=== PATIENT | male | born 1945 | race Asian ===

== ENCOUNTER 2017-09-23 12:20 | Inpatient (IN) | payer MEDICARE ==
[~2017-09-23] VITALS: Ht 172.7 cm; Wt 73.0 kg
[2017-09-23 12:20] VITALS: BP 170/108
[2017-09-23] MEDS ORDERED: SIMVASTATIN5 MG ORAL (12:34)
[2017-09-23] MEDS ORDERED: NORVASC2.5 MG ORAL (12:34)
[2017-09-23] MEDS ORDERED: Albuterol ud Inhalation HHN ONE ×2 (12:45→13:45)
[2017-09-23] MEDS ORDERED: Ipratropium 0.02% Inh Soln 2.5ml UD HHN ONE (12:45)
[2017-09-23] MEDS ORDERED: Solu-MEDROL 125mg Inj IVP ONE (12:45)
[2017-09-23 13:10] LABS: BASOPHILS % (AUTO) 1.6 % (0.0-2.0); EOSINOPHILS % (AUTO) 0.2 % (0.0-3.0); HEMATOCRIT 47.3 % (42.0-52.0); HEMOGLOBIN 15.8 G/DL (14.2-18.0); LYMPHOCYTES % (AUTO) 6.4 % (20.0-45.0); MEAN CORPUSCULAR VOLUME 94 FL (80-99); MONOCYTES % (AUTO) 16.4 % (1.0-10.0); NEUTROPHILS % (AUTO) 75.4 % (45.0-75.0); PLATELET COUNT 343 K/UL (150-450); RED BLOOD COUNT 5.03 M/UL (4.70-6.10); RED CELL DISTRIBUTION WIDTH 11.1 % (11.6-14.8); WHITE BLOOD COUNT 11.1 K/UL (4.8-10.8)
[2017-09-23 13:25] LABS: ANION GAP 11 mmol/L (5-15); BLOOD UREA NITROGEN 14 mg/dL (7-18); CALCIUM 8.1 MG/DL (8.5-10.1); CARBON DIOXIDE 26 MMOL/L (21-32); CHLORIDE 102 MMOL/L (98-107); POTASSIUM 3.4 MMOL/L (3.5-5.1); SODIUM 138 MMOL/L (136-145)
[2017-09-23 13:39] LABS: ALANINE AMINOTRANSFERASE 32 U/L (12-78); ALBUMIN 3.4 G/DL (3.4-5.0); ALBUMIN/GLOBULIN RATIO 0.8 (1.0-2.7); ALKALINE PHOSPHATASE 130 U/L (46-116); ASPARTATE AMINO TRANSFERASE 19 U/L (15-37); BILIRUBIN,TOTAL 0.6 MG/DL (0.2-1.0); CKMB 2.8 NG/ML (0.0-3.6); CREATINE KINASE 503 U/L (26-308)
[2017-09-23 14:00] VITALS: BP 153/91
--- NOTE | 2017-09-23 14:16 | Emergency Room Report ---
History of Present Illness General Chief Complaint: Asthma Source: Patient Present Illness HPI Patient present with complaints of shortness of breath Patient has history of asthma however has not required to go to the hospital previously He has increased cough shortness of breath Denies any pleurisy denies any chest pain Denies any vomiting or diarrhea Denies any recent travel Denies any calf pain or swelling He has not had much improvement at home with intervention Allergies: Coded Allergies: No Known Allergies (Unverified , 09/23/17) Patient History Past Medical History: see triage record Pertinent Family History: none Reviewed Nursing Documentation: PMH: Agreed, PSxH: Agreed Nursing Documentation-PM Past Medical History: No History, Except For Hx Hypertension: Yes Hx Asthma: Yes Review of Systems All Other Systems: negative except mentioned in HPI Physical Exam Vital Signs Date Time Temp Pulse Resp B/P (MAP) Pulse Ox O2 Delivery O2 Flow Rate FiO2 09/23/17 12:20 101 16 170/108 92 Room Air 09/23/17 12:27 98.1 09/23/17 13:12 21 Sp02 EP Interpretation: reviewed, normal General Appearance: mild distress - short of breath Head: normocephalic, atraumatic Eyes: bilateral eye PERRL, bilateral eye EOMI ENT: hearing grossly normal, normal pharynx, TMs + canals normal, uvula midline Neck: full range of motion, supple, no meningismus, no bony tend Respiratory: wheezing - Diffusely, patient is tachypneic, no obvious retractions at this time Cardiovascular #1: no edema, no gallop, no JVD, no murmur, tachycardia Gastrointestinal: normal bowel sounds, non tender, soft, no mass, no organomegaly, non-distended, no guarding, no hernia, no pulsatile mass, no rebound Genitourinary: no CVA tenderness Musculoskeletal: normal inspection Neurologic: oriented x3, responsive, director of publications III-XII nml as tested, motor strength/ tone normal, sensory intact Psychiatric: mood/affect normal Skin: normal color, no rash, warm/dry, palpation normal Lymphatic: normal inspection, no adenopathy Medical Decision Making Diagnostic Impression: Primary Impression: Asthma attack Additional Impression: URI (upper respiratory infection) ER Course Patient is a fairly complex patient with multiple differential to consideration including but not limited to cardiac cardiopulmonary and vascular emergencies Patient has done better with breathing treatment however still short of breath Require further inpatient care and intervention To consideration for pulmonary embolism is low therefore patient has not had further imaging for that Labs Test 09/23/17 12:48 White Blood Count 11.1 K/UL (4.8-10.8) Red Blood Count 5.03 M/UL (4.70-6.10) Hemoglobin 15.8 G/DL (14.2-18.0) Hematocrit 47.3 % (42.0-52.0) Mean Corpuscular Volume 94 FL (80-99) Mean Corpuscular Hemoglobin 31.4 PG (27.0-31.0) Mean Corpuscular Hemoglobin Concent 33.3 G/DL (32.0-36.0) Red Cell Distribution Width 11.1 % (11.6-14.8) Platelet Count 343 K/UL (150-450) Mean Platelet Volume 5.7 FL (6.5-10.1) Neutrophils (%) (Auto) 75.4 % (45.0-75.0) Lymphocytes (%) (Auto) 6.4 % (20.0-45.0) Monocytes (%) (Auto) 16.4 % (1.0-10.0) Eosinophils (%) (Auto) 0.2 % (0.0-3.0) Basophils (%) (Auto) 1.6 % (0.0-2.0) Sodium Level 138 MMOL/L (136-145) Potassium Level 3.4 MMOL/L (3.5-5.1) Chloride Level 102 MMOL/L (98-107) Carbon Dioxide Level 26 MMOL/L (21-32) Anion Gap 11 mmol/L (5-15) Blood Urea Nitrogen 14 mg/dL (7-18) Creatinine 1.0 MG/DL (0.55-1.30) Estimat Glomerular Filtration Rate > 60 mL/min (>60) Glucose Level 159 MG/DL (74-106) Calcium Level 8.1 MG/DL (8.5-10.1) Total Bilirubin 0.6 MG/DL (0.2-1.0) Aspartate Amino Transf (AST/SGOT) 19 U/L (15-37) Alanine Aminotransferase (ALT/SGPT) 32 U/L (12-78) Alkaline Phosphatase 130 U/L (46-116) Total Creatine Kinase 503 U/L (26-308) Creatine Kinase MB 2.8 NG/ML (0.0-3.6) Creatine Kinase MB Relative Index 0.5 Troponin I 0.000 ng/mL (0.000-0.056) Pro-B-Type Natriuretic Peptide 71 pg/mL (0-125) Total Protein 7.6 G/DL (6.4-8.2) Albumin 3.4 G/DL (3.4-5.0) Globulin 4.2 g/dL Albumin/Globulin Ratio 0.8 (1.0-2.7) Rhythm Strip Diag. Results EP Interpretation: yes Rate: 110 Rhythm: no PVC's, no ectopy, other - sinus tach Chest X-Ray Diagnostic Results Chest X-Ray Diagnostic Results : Chest X-Ray Ordered: Yes # of Views/Limited/Complete: 1 View Indication: Chest Pain EP Interpretation: Yes Interpretation: no consolidation, no effusion, no pneumothorax, no acute cardiopulmonary disease Impression: No acute disease Electronically Signed by: Sammi Ragland DO Last Vital Signs Date Time Temp Pulse Resp B/P (MAP) Pulse Ox O2 Delivery O2 Flow Rate FiO2 09/23/17 13:59 21 09/23/17 13:59 101 12 99 Room Air 09/23/17 12:34 98.1 170/108 Status: improved Disposition: ADMITTED INPATIENT Condition: Serious Referrals: NOT CHOSEN RONAL/,REFERRING (PCP) SAMMI RAGLAND D.O. Sep 23, 2017 14:15
[2017-09-23] MEDS: Albuterol ud Inhalation HHN SCH ×6 (15:45→20:30)
[2017-09-23] MEDS: Ipratropium 0.02% Inh Soln 2.5ml UD HHN SCH ×2 (15:45→20:07)
[2017-09-23 16:00] VITALS: BP 162/87
[2017-09-23 18:00] VITALS: BP 160/86
[2017-09-23 19:15] VITALS: BP 164/85
[2017-09-23 23:20] VITALS: BP 160/81
[2017-09-24] VITALS: BP 155/83
[2017-09-24] MEDS ORDERED: guaiFENesin w/Codeine 5ml Liq ud ORAL PRN (00:30)
[2017-09-24] MEDS ORDERED: Azithromycin 500 MG in D5W 275 ML IV SCH (00:30)
[2017-09-24] MEDS: Solu-MEDROL 40mg Inj IVP SCH ×2 (00:36→05:50)
[2017-09-24] MEDS ORDERED: Azithromycin 500mg Inj IV ONE (00:48)
[2017-09-24] MEDS: Albuterol ud Inhalation HHN SCH ×2 (03:47→08:35)
[2017-09-24 04:00] VITALS: BP 158/90
[2017-09-24 08:15] VITALS: BP 145/81
[2017-09-24 08:27] VITALS: BP 136/81
[2017-09-24] MEDS: Heparin 5000 units/ml inj SUBQ SCH ×2 (09:00→09:13)
[2017-09-24 09:11] VITALS: BP 136/81
[2017-09-24] MEDS ORDERED: MEDROL4 MG ORAL (09:20)
[2017-09-24] MEDS ORDERED: LEVAQUIN500 MG ORAL (09:20)
[2017-09-24] MEDS ORDERED: DULERA 200 MCG/13 GM IH (09:20)
[2017-09-24] MEDS ORDERED: Tubing IV Secondary IV ONE (09:59)
[2017-09-24] MEDS ORDERED: D5W 275ml ONE (09:59)
--- NOTE | 2017-09-24 15:30 | Consultation ---
DATE OF CONSULTATION: 09/24/2017 PULMONARY CONSULTATION HISTORY OF PRESENT ILLNESS: This is a very pleasant 71-year-old male with history of asthma. He only takes Ventolin at home as well as antihistamines. He came to the hospital with shortness of breath. He also reported cough with phlegm production. The patient has a previous history of hypertension for which he takes amlodipine. Other home medications include Ventolin only and antihistamine. PAST SURGICAL HISTORY: Surgeries, none reported. REVIEW OF SYSTEMS: He denies any headaches, hematemesis, melena, or hematochezia. PHYSICAL EXAMINATION: GENERAL: Reveals a 71-year-old male. VITAL SIGNS: Blood pressure 170/90, heart rate 82, respirations 18, he is afebrile, and O2 saturation is 98% on room air. HEENT: Unremarkable CHEST: At this time clear breath sounds bilaterally. Earlier, he had wheezing per ER report. CARDIAC: Unremarkable. NEUROLOGIC: Nonfocal. LABORATORY AND DIAGNOSTIC DATA: X-ray of the chest is negative. Labs on him today with white count 11,000. Creatinine is 1. EKG sinus tachycardia. IMPRESSION: 1. Acute asthma exacerbation, much improved. 2. Hypertension. DISCUSSION: The patient seen and evaluated discussed in detail. He needs outpatient followup, which I will arrange. He needs outpatient PFTs and inhaled corticosteroids, which I will also arrange. At this time, I will discharge him home with a prescription of Medrol, Levaquin, as wall as Dulera. Outpatient followup with myself. Discussed with Dr. Kessler. Hardy Lawson M.D. DR: DOUG JOB#: [id number] CC:
--- NOTE | 2017-09-24 21:48 | Diagnostic Imaging Report ---
Indication: Dyspnea Comparison: None A single view chest radiograph was obtained. Findings: No definite infiltrate or pulmonary vascular congestion identified. The heart is enlarged. The aorta is mildly enlarged consistent with atherosclerotic vascular disease. The bones are osteopenic. Impression: No acute disease
--- NOTE | 2017-09-24 21:49 | Cardiology Report ---
APPROVED REPORT EKG Measurement Heart [id number] Sinus tachycardia Otherwise normal ECG
--- NOTE | 2017-09-25 02:15 | History and Physical Report ---
DATE OF ADMISSION: 09/23/2017 REASON FOR ADMISSION: Asthma exacerbation. HISTORY OF PRESENT ILLNESS: This is a 71-year-old male with history of asthma, who has managed at home without prior hospitalizations. He uses an inhaler on rare occasions as well as antihistamine. He was increasingly short of breath today and noted cough and sputum production. He came to the emergency room and because of his respiratory distress, which failed to respond to several nebulizer treatments, he was given IV Solu-Medrol and admitted for further care. PAST MEDICAL HISTORY: Hypertension, hyperlipidemia. ALLERGIES: None. MEDICATIONS: Reviewed and reconciled. SOCIAL HISTORY: Denies smoking, alcohol, or substance abuse. FAMILY HISTORY: Noncontributory. REVIEW OF SYSTEMS: A 10-point review of systems performed, all systems negative. PHYSICAL EXAMINATION: VITAL SIGNS: Blood pressure 145/81, pulse 99, respirations 20, afebrile, and oxygen saturation on 2 L 97%. HEENT: Normocephalic, atraumatic. Conjunctivae pink. Oropharynx clear. NECK: Supple. No accessory muscle use. LUNGS: With clear breath sounds at this time. CARDIAC: Regular rhythm and rate. Normal S1 and S2 with no murmur, rub, or gallop. ABDOMEN: Soft, nontender. EXTREMITIES: Good pulses. No edema. NEUROLOGIC: Nonfocal. LABORATORY AND DIAGNOSTIC DATA: Chest x-ray with no acute process. White count 11,000. Chemistry panel within normal limits. EKG in the emergency room revealed sinus tachycardia, otherwise normal. IMPRESSION: 1. Acute asthma exacerbation. 2. Acute bronchospasm. 3. History of hypertension. 4. History of hyperlipidemia. DISCUSSION: The patient remained on observation. He will be seen by water system operator. He will be continued on inhaled bronchodilators and intravenous steroids. If he remains stable over the next several hours, he will be transitioned to an oral regimen at discharge with outpatient followup on oral steroids and empiric antibiotics. Nehemiah Kessler M.D. DR: TRAMAINE JOB#: [id number] CC:
--- NOTE | 2017-09-26 12:24 | Discharge Summary ---
Discharge Summary Hospital Course Date of Admission Sep 23, 2017 at 15:11 Date of Discharge Sep 24, 2017 at 10:00 Admitting Diagnosis Acute Asthma Exacerbation, Dyspnea HPI Carlos Payne is a 71 year old male who was admitted on Sep 23, 2017 at 15:11 for Acute Asthma Exacerbation/Dyspnea Hospital Course dc summary #[id number] Discharge Medications New Medications: Levofloxacin* (Levaquin*) 500 Mg Tablet 500 MG ORAL DAILY for 7 Days, TAB Methylprednisolone* (Medrol*) 4 Mg Tablet 4 MG ORAL DAILY, #10 TAB 0 Refills Mometasone/Formoterol (Dulera 200 Mcg/5 Mcg Inhaler) 13 Gm Hfa.aer.ad 13 GM IH BID, #1 INH Continued Medications: Amlodipine Besylate (Norvasc) 2.5 Mg Tablet 2.5 MG ORAL DAILY, TAB Simvastatin (Zocor) 5 Mg Tablet 5 MG ORAL BEDTIME, TAB Discharge Discharge Disposition Patient was discharged to Home (01) Discharge Diagnoses: Discharge Instructions Discharge Instructions Special Instructions I have been assigned to complete a D/C Summary on this account. I was not involved in the patient management Anna Timmons NP ([place]) Sep 26, 2017 12:24
--- NOTE | 2017-09-26 23:31 | Discharge Summary 2 SIG ---
DATE OF ADMISSION: 09/23/2017 DATE OF DISCHARGE: 09/24/2017 REASON FOR ADMISSION: 71-year-old male with history of asthma and hypertension, presented to emergency room with shortness of breath and wheezing. Pulse oximetry was 92% on the room air. The patient started on nebulizing treatment with bronchodilators and given intravenous steroid. He continued to be wheezing and being short of breath. Chest x-ray revealed no acute cardiopulmonary pathology. Empiric antibiotic started, EKG showed sinus tachycardia. No acute ischemic changes. The patient was admitted for acute asthma exacerbation. HOSPITAL COURSE: The patient was admitted to Medical/Surgical floor. Pulmonology consult was requested. Supplemental oxygen provided as needed to keep saturation above 92%. Pulmonary toilet with inhaled bronchodilators provided around the clock and as needed. The patient was continued on IV steroids, which were gradually tapered and changed to Medrol Dosepak upon discharge. Empiric antibiotics provided. Antitussive given as needed. DVT prophylaxis provided. Color Matcher seen and evaluated the patient. The patient will need follow up with the blender/braze applicator as outpatient for pulmonary function test and maintenance dose of inhaled steroids. For now, prescription was provided for Medrol Dosepak, Levaquin and Dulera. Blood pressure was managed with calcium channel-tony. The patient significantly improved. Wheezing essentially decreased and shortness of breath resolved. The patient was stable for discharge. Due to rapid and unexpected improvement in patient's condition, the patient was discharged in one day. FINAL DIAGNOSES: 1. Acute asthma exacerbation. 2. Bronchospasm. 3. Hypertension. 4. History of hyperlipidemia. DISCHARGE INSTRUCTIONS: The patient discharged home. FOLLOWUP: Follow up as outpatient with the blender/braze applicator and primary medical doctor. DISCHARGE MEDICATIONS: See medication reconciliation list. Prescription provided for Medrol, Levaquin and Dulera. Nehemiah Kessler M.D. I have been assigned to dictate discharge summary on this account and I was not involved in the patient's management. Anna Timmons ([facility] N.PYesica DR: SOM JOB#: [id number] CC: MAHENDRA
== END 2017-09-24 10:00 | disposition home or self-care (01) | DRG 203 ==
LOC: EMR 12:50 → 4E 15:11 → EDBEDREQ 21:41
DX: J45.901 Unspecified asthma with (acute) exacerbation (principal); I10 Essential (primary) hypertension; E78.5 Hyperlipidemia, unspecified; R00.0 Tachycardia, unspecified
CPT/HCPCS: 36415; 71045; 80053; 82550; 82553; 83880; 84484; 85025; 87040; 93005; 94640; 94664; 99285; J8499